=== PATIENT | male | born 1990 ===

== ENCOUNTER → 2024-03-16 | Outpatient (CLI) | payer OTHER | END | disposition home or self-care (01) | LOC: LAB SHORT 17:12 → LAB 17:12 | DX: B35.3 Tinea pedis (principal) ==

== ENCOUNTER 2024-07-24 23:10 | Emergency (ER) | payer OTHER ==
[~2024-07-24] VITALS: Ht 175.3 cm; Wt 145.2 kg
[2024-07-24 23:21] VITALS: BP 177/119
[2024-07-24] MEDS ORDERED: ABILIFY MYCITE PO (23:24)
[2024-07-24] MEDS ORDERED: Phentermine HCl30 MG PO (23:24)
[2024-07-24] MEDS ORDERED: XANAX0.25 MG PO (23:24)
[2024-07-24] MEDS ORDERED: Cephalexin Monohydrate 500 MG Cap PO ONE (23:25)
[2024-07-24] MEDS ORDERED: CEPH500 PO (23:28)
== END 2024-07-24 23:36 | disposition home or self-care (01) ==
LOC: ER 23:10
DX: L03.115 Cellulitis of right lower limb (principal); Z79.899 Other long term (current) drug therapy
CPT/HCPCS: A9270

== ENCOUNTER → 2025-07-12 | Outpatient (CLI) | payer OTHER ==
[~2025-07-12] MED LIST: ABILIFY MYCITE PO; CEPH500 PO; Phentermine HCl30 MG PO; XANAX0.25 MG PO
== END ==
LOC: LAB SHORT 19:24 → LAB 19:24
DX: L60.1 Onycholysis (principal)
CPT/HCPCS: 87102; 87210